=== PATIENT | female | born 1965 | race Caucasian/White ===

== ENCOUNTER → 2016-06-04 | Outpatient (CLI) | payer OTHER ==
--- NOTE | 2016-06-04 14:02 | MA ---
Diagnostic Digital Bilateral Mammogram History: Bilateral one view breast asymmetries. Comparison: Screening mammogram May 28, 2016. Technique: A spot compression view and a true-lateral view of each breast. Breast Density: C Findings: The asymmetry seen in the lower right breast on the oblique lateral view and outer left prakash ast on the CC view do not persist and were likely related to either overlapping normal parenchymal st ructures or a cyst that has involuted. Impression: Negative right and left breasts. BI-RADS: Category 1 . Recommendation: Return to screening mammography of both breasts in May 2017. Results and recommendation were communicated to the patient at the time of the examination.
== END ==
LOC: FIMAGING 13:14
PROVIDERS: ATTEND Family Medicine
DX: R92.8 Other abnormal and inconclusive findings on diagnostic imaging of breast (principal)
CPT/HCPCS: G0204

== ENCOUNTER → 2017-06-20 | Outpatient (CLI) | payer OTHER | LOC: BRMIMAGING 13:43 | PROVIDERS: ATTEND Family Medicine | DX: Z12.31 Encounter for screening mammogram for malignant neoplasm of breast (principal) ==